=== PATIENT | male | born 1990 | race Caucasian/White ===

== ENCOUNTER 2024-06-05 13:43 | Outpatient (CLI) | payer OTHER, SELFPAY ==
--- NOTE | ~2024-06-05 | MR_ITS ---
EXAMINATION: MR cervical spine wo con DATE: 06/05/2024 14:14 INDICATION: Cervical radiculopathy TECHNIQUE: Magnetic resonance imaging (MRI) of the cervical spine was performed without intravenous c ontrast. Sequences included sagittal T2-weighted FSE, sagittal T2-weighted FS FSE, sagittal T1-weight ed FSE, axial MERGE and axial T2-weighted FSE. COMPARISON: CT dated 11/19/2007 FINDINGS: Straightening of the normal cervical lordosis which could be positional or related to muscle spasm. Vertebral body heights are normal.. Bone marrow signal is normal. Mild disc height loss at C3-C4, C4- C5 and C6-C7 and mild to moderate disc height loss at C5-C6. Cord signal intensity is normal. Cervic al soft tissues are unremarkable. The following disc levels are specifically discussed: C2-C3: The disc does not extend beyond the endplate margin. There is no uncovertebral joint osteoarth ritis. There is mild right and mild to moderate left facet joint osteoarthritis. There is no neural f oraminal stenosis. There is no central canal stenosis. C3-C4: Disc is mildly bulging. There is mild bilateral uncovertebral joint osteoarthritis. There is m ild to moderate bilateral facet joint osteoarthritis. There is mild bilateral neural foraminal stenos is. There is mild central canal stenosis. C4-C5: Disc is mildly bulging. There is mild bilateral uncovertebral joint osteoarthritis. There is m ild bilateral facet joint osteoarthritis. There is minimal left neural foraminal stenosis. There is m ild central canal stenosis. C5-C6: Disc is mildly bulging with superimposed annular fissure and right paracentral to foraminal zo ne disc extrusion with disc material extending up to 6 mm caudal to the level of the superior endplat e of C6 and which indents the right ventral surface of the cord and results in mild to moderate right -sided predominant central canal stenosis. There is mild to moderate left and moderate right uncovert ebral joint osteoarthritis. There is mild bilateral facet joint osteoarthritis. There is moderate to severe right and minimal left neural foraminal stenosis. C6-C7: Disc is bulging. There is moderate bilateral uncovertebral joint osteoarthritis. There is mild bilateral facet joint osteoarthritis. There is mild bilateral neural foraminal stenosis. There is mi ld central canal stenosis. C7-T1: The disc does not extend beyond the endplate margin. There is no uncovertebral joint osteoarth ritis. There is mild right and mild to moderate left facet joint osteoarthritis. There is no neural f oraminal stenosis. There is no central canal stenosis. IMPRESSION: 1. Mild cervical spondylosis most notable for a right paracentral to right foraminal zone disc extrus ion at C5-C6 results in mild to moderate right-sided prominent central canal stenosis and moderate to severe right sided neural foraminal stenosis. Reviewed, dictated and finalized at location A. IMPRESSION: 1. Mild cervical spondylosis most notable for a right paracentral to right fora karin zone disc extrusion at C5-C6 results in mild to moderate right-sided prom inent central canal stenosis and moderate to severe right sided neural foramina l stenosis.
== END 2024-06-05 13:44 | disposition home or self-care (01) ==
LOC: MICIMG 13:47
DX: M47.22 Other spondylosis with radiculopathy, cervical region (principal)
CPT/HCPCS: 72141